=== PATIENT | male | born 1995 | race American Indian/Alaskan Native ===

== ENCOUNTER 2021-12-28 07:30 | Emergency (ER) | payer SELFPAY ==
[2021-12-28] MEDS ORDERED: methylPREDNISolone Sod Succinate 125 MG/2 ML INJ IV ONE (07:51)
[2021-12-28] MEDS ORDERED: FAMOTIDINE 20 MG/2 ML INJ IV ONE (07:51)
--- NOTE | 2021-12-28 09:06 | Emergency Department Report ---
HPI - General Chief Complaint: Allergic Reaction Time Seen by Provider: 12/28/21 07:49 - HPI HPI: 26-year-old black male with a past medical history of oral allergy syndrome from presents to the emergency department for evaluation of possible allergic lillian ction. He states that he was eating some chicken this morning and then started to feel like his throat was closing up, so he decided to follow-up in the emergency department for further evaluation. He states that he took 2 Benadryl in route. He denies shortness of breath, wheezing, and chest tightness at this time. ED Past Medical Hx - Medications Home Medications: Home Medications Medication Instructions Recorded Confirmed Last Taken Type EPINEPHrine [Epipen] 0.3 mg IJ ONCE PRN #1 pack 12/28/21 Unknown Rx ED Review of Systems ROS: Stated complaint: ALLERGIC REACTION Other details as noted in HPI Comment: All other systems reviewed and negative Constitutional: denies: chills, fever Respiratory: denies: shortness of breath Cardiovascular: denies: chest pain, palpitations Gastrointestinal: denies: abdominal pain, nausea, vomiting Neurological: denies: headache, weakness Physical Exam - Physical Exam Vital Signs: Vital Signs 12/28/21 07:36 Temperature 97.7 F Pulse Rate 90 Respiratory 18 Rate Blood Pressure 125/79 [Left] O2 Sat by Pulse 99 Oximetry ED Course Vital Signs 12/28/21 07:36 Temperature 97.7 F Pulse Rate 90 Respiratory 18 Rate Blood Pressure 125/79 [Left] O2 Sat by Pulse 99 Oximetry - Reevaluation(s) Reevaluation #1: 12/28/21 09:09 Patient states that he feels much better and does not feel like his throat is closing up anymore. ED Medical Decision Making - Medical Decision Making 26-year-old black male with a past medical history of oral allergy syndrome from presents to the emergency department for evaluation of possible allergic reaction. He states that he was eating some chicken this morning and then started to feel like his throat was closing up, so he decided to follow-up in the emergency department for further evaluation. He states that he took 2 Benadryl in route. He denies shortness of breath, wheezing, and chest tightness at this time. Physical exam unremarkable. Feeling of throat closing up improved after medications. Patient will be discharged home with EpiPen and advised to follow- up with [facility] [employer] for further evaluation and management. He is advised to return to the emergency department as needed. Critical care attestation.: If time is entered above; I have spent that time in minutes in the direct care of this critically ill patient, excluding procedure time. ED Disposition Clinical Impression: Allergic reaction Qualifiers: Encounter type: initial encounter Qualified Code(s): T78.40XA - Allergy, unspecified, initial encounter Disposition: HOME / SELF CARE / HOMELESS Is pt being admited?: No Does the pt Need Aspirin: No Condition: Stable Instructions: How to Use an Auto-Injector Pen, Anaphylactic Reaction, Adult, [id number] Additional Instructions: Use medication as prescribed. Monitor and avoid triggers. Follow-up with [facility] [employer] [facility] for further evaluation and management. Return to the emergency department as needed. Prescriptions: EPINEPHrine [Epipen] 0.3 mg IJ ONCE PRN #1 pack PRN Reason: Anaphylaxis Referrals: SKIP BRYANT MD [Referring] - 3-5 Days ARIE SIMMONS MD [Staff Physician] - 3-5 Days Time of Disposition: 09:12 ED ALLG RXN EXAM - General General appearance: in no apparent distress Limitations: No Limitations Head exam: Positive: atraumatic, normocephalic Eye exam: normal appearance ENT Exam: Positive: Normal Exam, Tolerating Secretions. Negative: Drooling, Muffled Voice, Facial Edema, Lip Edema, Tongue Edema, Uvular Edema Neck exam: Positive: normal inspection, full ROM. Negative: tenderness, lymphadenopathy, thyromegaly Respiratory exam: Positive: normal lung sounds bilaterally. Negative: respiratory distress, wheezes, rales, rhonchi, stridor, chest wall tenderness Cardiovascular Exam: Positive: regular rate, normal heart sounds Peripheral pulses: 2+: Radial (R), Radial (L) GI/Abdominal exam: Positive: soft, normal bowel sounds. Negative: distended, guarding, rebound, rigid Extremities exam: Positive: normal inspection, normal capillary refill Back exam: normal inspection Neurological exam: Positive: alert, oriented X3, CN II-XII intact, normal gait Psychiatric exam: Positive: normal affect, normal mood Skin exam: Positive: warm, dry, intact, normal color
[2021-12-28 09:16] VITALS: BP 130/86
== END 2021-12-28 09:40 | disposition home or self-care (01) ==
LOC: ED 07:30
DX: T78.40XA Allergy, unspecified, initial encounter (principal); Z91.018 Allergy to other foods; Z88.8 Allergy status to other drugs, medicaments and biological substances; Z79.899 Other long term (current) drug therapy; X58.XXXA Exposure to other specified factors, initial encounter
CPT/HCPCS: 96374; 96375; 99282; J2930; J3490

== ENCOUNTER 2022-01-24 06:25 | Emergency (ER) | payer SELFPAY ==
[2022-01-24 07:26] VITALS: BP 137/71
--- NOTE | 2022-01-24 09:29 | Emergency Department Report ---
- General Chief complaint: Skin Rash Stated complaint: RASH Time Seen by Provider: 01/24/22 09:14 Source: patient Mode of arrival: Ambulatory Limitations: No Limitations - History of Present Illness Initial comments: started at [employer] with new gloves and developed a rash to hand and wrist. MD complaint: rash -: Gradual - Related Data Previous Rx's Medication Instructions Recorded Last Taken Type EPINEPHrine [Epipen] 0.3 mg IJ ONCE PRN #1 pack 12/28/21 Unknown Rx Allergies Allergy/AdvReac Type Severity Reaction Status Date / Time avocado Allergy Anaphylaxis Verified 12/28/21 07:46 fabiola seed Allergy Anaphylaxis Verified 12/28/21 07:46 carrot Allergy Anaphylaxis Verified 12/28/21 07:46 celery Allergy Anaphylaxis Verified 12/28/21 07:46 cucumber Allergy Anaphylaxis Verified 12/28/21 07:46 aquiles Allergy Anaphylaxis Verified 12/28/21 07:46 mushroom Allergy Anaphylaxis Verified 12/28/21 07:46 mustard Allergy Anaphylaxis Verified 12/28/21 07:46 parsley Allergy Anaphylaxis Verified 12/28/21 07:46 pepper (genus Capsicum) Allergy Anaphylaxis Verified 12/28/21 07:46 potato Allergy Anaphylaxis Verified 12/28/21 07:46 soybean Allergy Anaphylaxis Verified 12/28/21 07:46 spinach Allergy Anaphylaxis Verified 12/28/21 07:46 tomato Allergy Anaphylaxis Verified 12/28/21 07:46 eggplant AdvReac Anaphylaxis Verified 12/28/21 07:46 aniseed Allergy Anaphylaxis Uncoded 12/28/21 07:46 fennel Allergy Anaphylaxis Uncoded 12/28/21 07:46 parsnip Allergy Anaphylaxis Uncoded 12/28/21 07:46 zucchini Allergy Anaphylaxis Uncoded 12/28/21 07:46 Abscess Boil HPI - HPI Chief Complaint: Skin Rash Stated Complaint: RASH Time Seen by Provider: 01/24/22 09:14 Home Medications: Previous Rx's Medication Instructions Recorded Last Taken Type EPINEPHrine [Epipen] 0.3 mg IJ ONCE PRN #1 pack 12/28/21 Unknown Rx Allergies/Adverse Reactions: Allergies Allergy/AdvReac Type Severity Reaction Status Date / Time avocado Allergy Anaphylaxis Verified 12/28/21 07:46 fabiola seed Allergy Anaphylaxis Verified 12/28/21 07:46 carrot Allergy Anaphylaxis Verified 12/28/21 07:46 celery Allergy Anaphylaxis Verified 12/28/21 07:46 cucumber Allergy Anaphylaxis Verified 12/28/21 07:46 aquiles Allergy Anaphylaxis Verified 12/28/21 07:46 mushroom Allergy Anaphylaxis Verified 12/28/21 07:46 mustard Allergy Anaphylaxis Verified 12/28/21 07:46 parsley Allergy Anaphylaxis Verified 12/28/21 07:46 pepper (genus Capsicum) Allergy Anaphylaxis Verified 12/28/21 07:46 potato Allergy Anaphylaxis Verified 12/28/21 07:46 soybean Allergy Anaphylaxis Verified 12/28/21 07:46 spinach Allergy Anaphylaxis Verified 12/28/21 07:46 tomato Allergy Anaphylaxis Verified 12/28/21 07:46 eggplant AdvReac Anaphylaxis Verified 12/28/21 07:46 aniseed Allergy Anaphylaxis Uncoded 12/28/21 07:46 fennel Allergy Anaphylaxis Uncoded 12/28/21 07:46 parsnip Allergy Anaphylaxis Uncoded 12/28/21 07:46 zucchini Allergy Anaphylaxis Uncoded 12/28/21 07:46 ED Review of Systems ROS: Stated complaint: RASH Other details as noted in HPI ED Past Medical Hx - Past Medical History Previous Medical History?: No - Surgical History Past Surgical History?: No - Medications Home Medications: Home Medications Medication Instructions Recorded Confirmed Last Taken Type EPINEPHrine [Epipen] 0.3 mg IJ ONCE PRN #1 pack 12/28/21 Unknown Rx ED Physical Exam - General Limitations: No Limitations ED Course Vital Signs 01/24/22 07:21 Temperature 98.3 F Pulse Rate 83 Respiratory 16 Rate Blood Pressure 137/71 [Right] O2 Sat by Pulse 97 Oximetry Critical care attestation.: If time is entered above; I have spent that time in minutes in the direct care of this critically ill patient, excluding procedure time. ED Disposition Clinical Impression: Rash and nonspecific skin eruption Disposition: 01 HOME / SELF CARE / HOMELESS Is pt being admited?: No Does the pt Need Aspirin: No Condition: Stable Instructions: Rash, Adult Additional Instructions: USE OTC HYDROCORTISONE AND BENADRYL CREAM WITH CLARITIN FOR YOUR TREATMENT 2 WEEKS WE DISCUSSED. Referrals: [facility] [Provider Group] - 3-5 Days Forms: Work/School Release Form(ED)
== END 2022-01-24 10:10 | disposition home or self-care (01) ==
LOC: ED 06:25
DX: R21 Rash and other nonspecific skin eruption (principal); Z91.02 Food additives allergy status; Z91.09 Other allergy status, other than to drugs and biological substances
CPT/HCPCS: 99282